=== PATIENT | female | born 1950 | race Caucasian/White ===

== ENCOUNTER 2022-02-03 11:34 | Outpatient (CLI) | payer MEDICARE | END 2022-02-03 11:35 | disposition home or self-care (01) | LOC: CSHLAB 11:34 | PROVIDERS: ATTEND Internal Medicine Gastroenterology | DX: Z20.822 Contact with and (suspected) exposure to COVID-19 (principal); R63.4 Abnormal weight loss; R13.10 Dysphagia, unspecified | CPT/HCPCS: 87811 ==

== ENCOUNTER 2022-02-07 09:26 | Day surgery (SDC) | payer MEDICARE ==
[2022-02-02 15:30] VITALS: BMI 13.8
[2022-02-07] MEDS ORDERED: PROPOFOL 0 ML ONE (11:44)
[2022-02-07] MEDS ORDERED: Lidocaine 1% PF 5 ML VIAL ONE (11:47)
[2022-02-07] MEDS ORDERED: Glycopyrrolate 0.2 MG/ML 5 ML SYRINGE ONE (12:04)
[2022-02-07] MEDS ORDERED: ePHEDrine Sulfate 50 MG/10 ML VIAL ONE (12:16)
[2022-02-07] MEDS ORDERED: PHENYLEPHRINE-NS 100 MCG/ML 10 ML SYRINGE ONE (12:27)
== END 2022-02-07 13:05 | disposition home or self-care (01) ==
LOC: CSHSDC 09:26
PROVIDERS: ATTEND Internal Medicine Gastroenterology
PROC: 0DB38ZX Excision of Lower Esophagus, Via Natural or Artificial Opening Endoscopic, Diagnostic (ICD-10-PCS; principal; 2022-02-07)
DX: C15.5 Malignant neoplasm of lower third of esophagus (principal); B37.81 Candidal esophagitis; R13.10 Dysphagia, unspecified; R10.9 Unspecified abdominal pain; R11.2 Nausea with vomiting, unspecified; F17.210 Nicotine dependence, cigarettes, uncomplicated; I10 Essential (primary) hypertension; E11.9 Type 2 diabetes mellitus without complications; E78.5 Hyperlipidemia, unspecified; M81.0 Age-related osteoporosis without current pathological fracture; K21.9 Gastro-esophageal reflux disease without esophagitis; R63.4 Abnormal weight loss; Z68.1 Body mass index [BMI] 19.9 or less, adult; Z79.899 Other long term (current) drug therapy; Z88.2 Allergy status to sulfonamides
CPT/HCPCS: 88305; 88341; 88342; 93005; 93010; J2704